=== PATIENT | female | born 1995 | race Caucasian/White ===

== ENCOUNTER 2021-07-14 11:56 | Emergency (ER) | payer OTHER, MEDICAID ==
[~2021-07-14] VITALS: Ht 157.5 cm; Wt 77.1 kg
[~2021-07-14 11:56] MED LIST: BACTRIM DS TAB1 EACH PO; ONDANSETRON HCL4 M2 PO; PROZAC 10 MG CA10 MG; TRINATE TABLET1 TAB
[2021-07-14] MEDS ORDERED: PROZAC40 MG PO (12:05)
[2021-07-14 12:48] LABS: INFLUENZA A ANTIGEN Negative (Negative); INFLUENZA B ANTIGEN Negative (Negative)
[2021-07-14] MEDS ORDERED: TESSALON PERLE100 MG PO (13:05)
[2021-07-14] MEDS ORDERED: MEDROLDOSEPACK PO (13:05)
[2021-07-14 13:13] VITALS: BP 142/82
== END 2021-07-14 13:13 | disposition home or self-care (01) ==
LOC: M.ERS 11:56
PROVIDERS: Physician Assistant
DX: J06.9 Acute upper respiratory infection, unspecified (principal); Z20.822 Contact with and (suspected) exposure to COVID-19; R05.9 Cough, unspecified; Z79.899 Other long term (current) drug therapy

== ENCOUNTER 2021-08-03 10:01 | Emergency (ER) | payer OTHER, MEDICAID ==
[~2021-08-03] VITALS: Ht 157.5 cm; Wt 72.6 kg
[~2021-08-03 10:01] MED LIST changes: +MEDROLDOSEPACK PO; +PROZAC40 MG PO; +TESSALON PERLE100 MG PO
[2021-08-03 12:25] VITALS: BP 142/83
== END 2021-08-03 12:26 | disposition home or self-care (01) ==
LOC: M.ERS 10:01
DX: U07.1 COVID-19 (principal); R42 Dizziness and giddiness; Z79.899 Other long term (current) drug therapy